=== PATIENT | male | born 1940 | race Caucasian/White ===

== ENCOUNTER → 2016-07-03 | Outpatient (CLI) | payer MEDICARE, OTHER | LOC: US 06-29 10:30 | DX: D69.6 Thrombocytopenia, unspecified (principal) | CPT/HCPCS: 76705 ==

== ENCOUNTER → 2020-07-20 | Outpatient (CLI) | payer MEDICARE, OTHER ==
[~2020-07-20] MED LIST: BREO ELLIPTA 11 EACH INH; CILOSTAZOL50 MG PO; CLARITIN10 MG PO; COLACE 100MG C100 MG PO; FLOMAX0.4 MG PO; IMDUR ER TAB 3030 MG PO; LISINOPRIL40 MG PO; MICROZIDE12.5 MG PO; NORCO 10-325 T1 EACH PO; NORVASC10 MG PO; OMEPRAZOLE20 MG PO; SINGULAIR10 MG PO; SYNTHROID88 MCG PO; TOPROL XL25 MG PO; VITAMIN D32000 UNI1 PO; ZOCOR20 MG PO
== END ==
LOC: EXRD 10:15
DX: N18.30 Chronic kidney disease, stage 3 unspecified (principal)
CPT/HCPCS: 76775